=== PATIENT | male | born 1995 | race Caucasian/White ===

== ENCOUNTER → 2016-07-23 08:40 | Emergency (ER) | payer OTHER ==
[~2016-07-23 08:40] MED LIST: AEROBID7 GM; ALBUTEROL17 G1 IH; FIORICET 50-321 EACH PO; FLONASE16 GM; NO MEDICATIONS; VOSPIRE ER8 MG; [UNRECOGNIZED DRUG - OTHER]
== END | disposition left against medical advice (07) ==
LOC: CED 08:40
DX: Z53.21 Procedure and treatment not carried out due to patient leaving prior to being seen by health care provider (principal)

== ENCOUNTER → 2016-07-29 | Day surgery (SDC) | payer OTHER ==
--- NOTE | ~2016-07-29 | OR ---
Unit #: [id number] #: [id number] Patient: MELBA REBOLLAR [id number] [address] [place], [place] [address] [id number] O MR#: [id number] NAME: MELBA REBOLLAR ROOM: Date of Procedure: 07/29/2016 Admission Date: 07/29/2016 Surgeon: Jorge L Hillman M.D. : 1995 Attending Physician: Jorge L Hillman M.D. Referring Physician: Jorge L Hillman M.D. Primary Care Physician: Primary Care Physician No OPERATIVE REPORT PRIMARY CARE PHYSICIAN The patient has come from the emergency room, referred by Dr. Blake. PREOPERATIVE DIAGNOSES The patient presents with a history of rather diffuse upper abdominal pain radiating to the back. Initial evaluation showed normal liver function studies. However, the patient's ultrasound and CAT scan suggested distal common bile duct obstruction with common bile duct dilated to about 15 to 20 mm and filled with debris above the pancreatic head. There was also concern regarding pancreatic mass. PROCEDURES PERFORMED Endoscopic retrograde cholangiopancreatography and stent placement. POSTOPERATIVE DIAGNOSES There was considerable movement of patient due to breathing. As a result, the ERCP was somewhat challenging. Repeated cannulation of the pancreatic duct with the guidewire based technique was done; as a result, a 5-Kazakh 5 cm pancreatic stent was placed. Although the patient was draining bile profusely, the common bile duct could not be cannulated. It was felt unsafe to perform a needle-knife sphincterotomy with the patient's movement at the time of examination. RECOMMENDATIONS The patient will be followed up in the clinic next week and a repeat ERCP will be planned at that time. SEDATION USED MAC. DESCRIPTION OF PROCEDURE Following detailed explanation of potential risks and complications of an ERCP, namely perforation, bleeding, complication related to sedation, and pancreatitis, the patient was brought to GI lab and laid in the left semiprone position. Sedation using MAC was given. A lateral viewing duodenoscope was advanced and an upper GI endoscopy was performed initially, which was normal. The lateral viewing duodenoscope was advanced through the oral cavity into the esophagus, and advanced to the stomach. Pylorus was intubated in the usual fashion. The scope was advanced in deep descending duodenum. Upon shortening the scope, major papillary and ampullary area was visualized en face. Using guidewire based technique, cannulation of the common bile duct was attempted; Unit #: [id number] #: [id number] Patient: MELBA REBOLLAR however, each time pancreatic duct ended up being cannulated. A guidewire was then anchored in the pancreatic duct and using the double wire technique, the cannulation of common bile duct was still unsuccessful. The most difficult problem was the fact the patient was having significant respiratory excursion and movement during breathing. We then put a 5-Kazakh 5 cm pancreatic stent and repeat attempt at cannulation again of the bile duct was unsuccessful. It was very unsafe to perform a needle knife sphincterotomy under these endoscopic conditions. The scope and the accessories were then withdrawn. The patient returned to the recovery area. He tolerated the procedure without any postprocedure complications. Dictated by... China Kendrick/ria TD: 07/30/2016 07:45 JOB #: [id number] OPERATIVE REPORT Page 1 of 1 X Jorge L Hillman MD X PROCEDURE OPERATIVE NOTE
--- NOTE | ~2016-07-29 | US67 ---
[facility] A Service of [facility] RADIOLOGY TEXT RESULTS PATIENT: MELBA REBOLLAR LOCATION: [employer] : [birth year] UNIT #: [id number] AGE: [address]: Kendrick Sanchez DO SEX: M ORDER DR: [id number] [facility] [address] [place], [place] [address] [id number] E MR#: [id number] Acc #: [id number] NAME: MELBA REBOLLAR : 1995 SEX: M STUDY DATE/TIME: 07/29/2016 11:39 UNIT: CARLITO ROOM: STUDY DESCRIPTION: Gallbladder Attending Physician: Kendrick Sanchez D.O. Ordering Physician: Kendrick Sanchez D.O. Primary Care Physician: No Primary Care Physician MEDICAL IMAGING REPORT This report is preliminary unless electronic signature is present EXAM Gallbladder ultrasound. INDICATION Abdominal pain, nausea, and vomiting since 2:00 a.m. FINDINGS The pancreatic head and body are normal. The tail is obscured by bowel gas. The liver is normal in echogenicity and size and there are no focal lesions. There is no intrahepatic biliary distension. The right kidney is 11.6 in length and appears normal. The gallbladder is filled with echogenic material consistent with sludge. The gallbladder wall is borderline in thickness measuring up to 5 mm in diameter. The common bile duct is enlarged measuring 15 mm in diameter. IMPRESSION 1. The gallbladder is filled with sludge and there is borderline wall thickening. 2. The common bile duct is dilated up to 15 mm. There does not seem to be any intrahepatic biliary distension. 3. Otherwise normal. Dictated by... Zen Penny M.D. THIS IS AN ELECTRONICALLY VERIFIED REPORT Zen Penny M.D. at 07/29/2016 3:23 PM RICCI/samaria TD: 07/29/2016 13:53 JOB #: [id number] [facility] A Service of [facility] RADIOLOGY TEXT RESULTS PATIENT: MELBA REBOLLAR LOCATION: [facility] #: [id number] : [birth year] UNIT #: [id number] AGE: [address]: Kendrick Sanchez DO SEX: M ORDER DR: MEDICAL IMAGING REPORT Page 1 of 1 COPY
--- NOTE | ~2016-07-29 | CT2 ---
[facility] A Service of [facility] RADIOLOGY TEXT RESULTS PATIENT: MELBA REBOLLAR LOCATION: [employer] : [birth year] UNIT #: [id number] AGE: [address]: Jorge L Hillman MD SEX: M ORDER DR: [id number] [facility] [address] [place], [place] [address] [id number] E MR#: [id number] #: [id number] NAME: MELBA REBOLLAR : 1995 SEX: M STUDY DATE/TIME: 07/29/2016 7:57 UNIT: CARLITO ROOM: STUDY DESCRIPTION: CT Abd and Pelv W Cont Attending Physician: Kendrick Sanchez D.O. Ordering Physician: Kendrick Sanchez D.O. MEDICAL IMAGING REPORT This report is preliminary unless electronic signature is present EXAM CT of the abdomen and pelvis with IV contrast media HISTORY Lower abdominal pain beginning today. No bowel movement for 3-4 days. TECHNIQUE Axial imaging of the abdomen and pelvis was performed with IV contrast media. This CT exam was performed with one or more of the following radiation dose reduction techniques: automatic exposure control, adjustment of mA and/or kV according to patient size, and iterative reconstruction. FINDINGS Lung bases are clear. Scans through the liver parenchyma are normal. There are gallstones dependently in the gallbladder. Question is raised of multiple filling defects in the common duct. The common duct appears filled with debris and it measures about 2 cm in diameter. This is above the pancreatic head. I cannot entirely exclude a mass in the pancreatic head. Distally the common duct appears normal. Near its juncture with the duodenum. Spleen is mildly enlarged. The adrenal glands are normal. There is no evidence of pancreatic ductal dilatation. There is no intrahepatic biliary dilatation. No dilated or thickened loops of bowel are identified in the abdomen or pelvis. The appendix is normal. There is no fluid collections. No pelvic masses or fluid collections are present. Patient does have a relatively narrow spinal canal within the lumbar region. CONCLUSION 1. Cholelithiasis. 2. Extrahepatic biliary dilatation with the duct measuring up to about 2 cm. I am concerned the patient could have a mass in the pancreatic head or has a large amount of debris in the common duct. ERCP should STS. [facility] A Service of [facility] RADIOLOGY TEXT RESULTS PATIENT: MELBA REBOLLAR LOCATION: [employer] : [birth year] UNIT #: [id number] AGE: [address]: Jorge L Hillman MD SEX: M ORDER DR: be considered for further characterization. No evidence of intrahepatic biliary dilatation and no evidence of pancreatic ductal dilatation. 2. Relatively narrow spinal canal probably insignificant at this time. STAT * RESULT Dictated by... Juancho Rodriguez M.D. THIS IS AN ELECTRONICALLY VERIFIED REPORT Juancho Rodriguez M.D. at 07/30/2016 7:10 AM RADHA/marlene TD: 07/29/2016 09:29 JOB #: [id number] MEDICAL IMAGING REPORT Page 1 of 1 COPY
--- NOTE | ~2016-07-29 | CO ---
Unit #: [id number] #: [id number] Patient: MELBA REBOLLAR [id number] [address] [place], [place] [address] [id number] O MR#: [id number] NAME: MELBA REBOLLAR ROOM: Age: 20 Sex: M Admission Date: 07/29/2016 : 1995 Attending Physician: Jorge L Hillman M.D. Primary Care Physician: No Primary Care Physician Requesting Physician: Jorge L Hillman M.D. CONSULTATION REPORT ATTENDING PHYSICIAN Dr. Kendrick Sanchez in the ER. The patient does not have any PCP. REASON FOR CONSULTATION Abdominal pain and dilated bile duct. HISTORY OF PRESENT ILLNESS This young man was brought in by his parents. He is 20 years old and has been having intermittent abdominal pain off and on for the past couple of months. The pain started primarily in the upper abdomen and radiates to the back. His appetite is poor. He might have lost a few pounds. He appears to be quite shy and mostly answers questions in monosyllables. There is no history of fever, chills or rigors. There is no other significant past medical history of note and he has had no prior surgeries. He has probably had asthma as a child. He (1) medication and denies any drug allergies. He does not smoke or drink alcohol and lives at home with his parents. REVIEW OF SYSTEMS A detailed review of organ system does not reveal any fever, chills, rigors. No history of weight loss. No history of headache, seizures, chest pain or syncope. No history of cough, expectoration, hemoptysis. No history of dysuria, hematuria, pyuria. No history of focal seizures or extremity weakness. No history of overt GI bleed. PHYSICAL EXAMINATION GENERAL APPERANCE: He is alert, oriented and appears comfortable. He has no pallor, icterus, lymphadenopathy or peripheral edema. VITAL SIGNS: Stable with a temperature of 97.8, pulse 85 per minute, respiratory rate 20, blood pressure 127/92. Oxygen saturation is 100% on room air. CARDIOVASCULAR: Normal heart sounds. No murmurs on auscultation. LUNGS: Normal breath sounds. Good air entry. ABDOMEN: Soft, nontender. Liver and spleen are not palpable. Bowel sounds heard.. DIAGNOSTIC STUDIES LABORATORY: Lab evaluation reveals leukocytosis. White count of 14,000 with a left shift. Hemoglobin and hematocrit are normal. Serum chemistry shows a normal BUN and creatinine, a potassium of 3.4 and an albumin of 4.8. Bilirubin, AST and ALT are all normal. Alkaline phosphatase normal. Lipase is also normal. IMAGING: The patient had a CT scan of the abdomen and ultrasound both of Unit #: [id number] #: [id number] Patient: MELBA REBOLLAR which indicate dilated extrahepatic bile duct up to 20 mm and the dilation is most remarkable in the pancreatic head. The duct is harder to trace just beyond the ampullary area. The differential diagnosis includes common bile duct obstruction from either sludge or stones or a mass in the pancreas. MANAGEMENT PLAN A considerable discussion held with patient and family. They were advised to come for an outpatient ERCP. However, in lieu of the fact the patient had significant pain, an ERCP will be planned later today depending on availability of the endoscopy staff and Anesthesia. Pros and cons of procedure and potential risks, complications including the possibility of perforation, bleeding, complication (2) pancreatitis were discussed with the patient and the parents and they seem reassured. Thank you for asking me to see this gentleman. I appreciate the consult. Dictated by... China Kendrick/jennifer TD: 07/30/2016 06:04 JOB #: [id number] CONSULTATION REPORT Page 1 of 1 X Jorge L Hillman MD X CONSULTATION REPORT
[2016-07-29 07:09] LABS: BASOPHIL# 0.1 X10e3 (0-0.3); BASOPHIL% 0.6 % (0-2.5); DIFF IND NO; EOSINOPHIL# 0.1 X10e3 (0-0.7); EOSINOPHIL% 0.6 % (0.0-7.0); HEMATOCRIT 46.1 % (38.0-50.0); HEMOGLOBIN 15.8 gm/dL (13.0-16.0); LYMPHOCYTE% 14.1 % (17.0-45.0); MEAN CELL VOLUME 90.3 FL (83-96); MEAN CORPUSCULAR HGB CONC 34.3 g/dL (30-36); MEAN PLATELET VOLUME 9.1 FL (6.5-11.5); MONOCYTE# 0.7 X10e3 (0-1.0); MONOCYTE% 5.1 % (3.0-12.0); NEUTROPHIL# 11.5 X10e3 (1.5-7.1); NEUTROPHIL% 79.6 % (40-75); PLATELET COUNT 233 X10e3 (140-420); RED CELL DISTRIBUTION WIDTH 12.9 % (11.0-15.5); WHITE BLOOD COUNT 14.5 X10e3 (4.0-10.5)
[2016-07-29 07:34] LABS: ALBUMIN SERUM 4.8 g/dL (3.5-5.0); BILIRUBIN, DIRECT 0.2 mg/dL (0.0-0.2); BILIRUBIN,INDIRECT 1.2 mg/dL (0.0-0.9); BILIRUBIN,TOTAL 1.4 mg/dL (0.2-2.0); BUN/CREATININE RATIO 10.71; CALCIUM SERUM 9.6 mg/dL (8.4-10.2); CREATININE SERUM 1.4 mg/dL (0.6-1.4); GLOM FILT RATE Estimated 71.3 mL/min (>60); POTASSIUM 3.4 mmol/L (3.5-5.1); PROTEIN TOTAL SERUM 7.5 g/dL (6.0-8.3)
[2016-07-29 09:05] LABS: URINE SOURCE CLEAN CATCH
[2016-07-29 09:09] LABS: URINE BILIRUBIN NEG (NEG); URINE BLOOD NEG (NEG); URINE COLOR YELLOW; URINE GLUCOSE NEG (NEG); URINE KETONE 2+ (NEG); URINE LEUKOCYTE ESTERASE NEG (NEG); URINE NITRATE NEG (NEG); URINE PH 8.5 (5-8); URINE PROTEIN NEG (NEG); URINE SPECIFIC GRAVITY 1.046 (1.003-1.035)
[2016-07-29 09:14] LABS: CULTURE INDICATED? NO
== END | disposition home or self-care (01) ==
LOC: CED 08:37 → COPS 17:03
PROVIDERS: Emergency Medicine
DX: R10.10 Upper abdominal pain, unspecified (principal); R06.89 Other abnormalities of breathing
CPT/HCPCS: 36415; 74177; 76000; 76705; 80048; 80076; 81003; 83690; 85025; 96361; 96372; 96374; 96375; 99285; J0500; J1610; J1885; J2250; J2405; Q9967

== ENCOUNTER → 2016-08-24 | Outpatient (CLI) | payer OTHER ==
[2016-08-24 15:38] LABS: BASOPHIL# 0.1 X10e3 (0-0.3); BASOPHIL% 0.8 % (0-2.5); EOSINOPHIL# 0.1 X10e3 (0-0.7); HEMATOCRIT 46.4 % (38.0-50.0); HEMOGLOBIN 15.9 gm/dL (13.0-16.0); LYMPHOCYTE# 1.7 X10e3 (1.0-3.5); LYMPHOCYTE% 19.3 % (17.0-45.0); MEAN CELL VOLUME 90.4 FL (83-96); MEAN CORPUSCULAR HGB CONC 34.3 g/dL (30-36); MEAN PLATELET VOLUME 8.9 FL (6.5-11.5); MONOCYTE# 0.4 X10e3 (0-1.0); MONOCYTE% 4.9 % (3.0-12.0); NEUTROPHIL# 6.6 X10e3 (1.5-7.1); PLATELET COUNT 204 X10e3 (140-420); RED BLOOD COUNT 5.13 X10e (3.90-5.60); RED CELL DISTRIBUTION WIDTH 12.5 % (11.0-15.5)
[2016-08-24 15:48] LABS: DIFF IND NO
[2016-08-24 16:41] LABS: ALBUMIN SERUM 4.7 g/dL (3.5-5.0); CALCIUM SERUM 9.6 mg/dL (8.4-10.2); CREATININE SERUM 1.1 mg/dL (0.6-1.4); GLOM FILT RATE Estimated 95.5 mL/min (>60); POTASSIUM 4.3 mmol/L (3.5-5.1); PROTEIN TOTAL SERUM 7.7 g/dL (6.0-8.3)
== END | disposition home or self-care (01) ==
LOC: CLAB 14:57
PROVIDERS: Internal Medicine Gastroenterology
DX: R10.9 Unspecified abdominal pain (principal)
CPT/HCPCS: 36415; 80053; 82150; 83690; 85025